=== PATIENT | male | born 1965 | race Caucasian/White ===

== ENCOUNTER 2021-10-02 05:37 | Observation (INO) ==
--- NOTE | 2021-05-02 11:52 | PAT Medication Instructions ---
Medication Instructions Date of Service May 02, 2021 Home Medications Medication Instructions Recorded diazepam 5 mg tablet 5 mg PO USEASDIRECTD #2 tab 11/23/20 oxycodone-acetaminophen 5 mg-325 1 tab PO Q6H PRN #10 tab 12/07/20 mg tablet (Percocet) diazepam 5 mg tablet 5 mg PO USEASDIRECTD oxycodone-acetaminophen 5 mg-325 mg tablet (Percocet) 1 tab PO Q6H PRN losartan 100 mg tablet 100 mg PO PM metformin 500 mg tablet 500 mg PO BID montelukast 10 mg tablet 10 mg PO DAILY PRN Continue as directed diazepam 5 mg tablet 5 mg PO USEASDIRECTD (if needed) DO NOT take the morning of surgery metformin 500 mg tablet 500 mg PO BID montelukast 10 mg tablet 10 mg PO DAILY PRN Take morning of surgery With a small sip of water, OTHERWISE NOTHING TO EAT OR DRINK AFTER MIDNIGHT: oxycodone-acetaminophen 5 mg-325 mg tablet (Percocet) 1 tab PO Q6H PRN (okay to take up to 4 hours prior to surgery if needed) Take evening before surgery oxycodone-acetaminophen 5 mg-325 mg tablet (Percocet) 1 tab PO Q6H PRN (if needed) losartan 100 mg tablet 100 mg PO PM metformin 500 mg tablet 500 mg PO BID montelukast 10 mg tablet 10 mg PO DAILY PRN (if needed) Other Notes If you have any questions please call us at [phone] or [phone] or [phone] or [phone]
--- NOTE | 2021-05-04 11:30 | Anesthesiology Consultation ---
Date of Service May 04, 2021 Assessment & Plan (1) Encounter for pre-operative examination: Chart Review Chart Review: Acceptable Risk for Surgery (pending possible ECHO report if able to obtain and preop Covid testing ) and Patient seen in Pre Admission Testing Will attempt to obtain ECHO done in the past several years (done at [facility]) (Pt had screening ECHO- no issues with ECHO per patient) - Check BSG AM DOS Per PAT appt on 05/04/21, patient returned from [place] 04/14/21 (work related trip)- did fly. Pt will be traveling to [employer] in [place] 05/13/21 to 05/21/21 for work obligation- does not wear mask when outside in crowds but does wear mask when in crowds indoors. No known Covid positive contacts or Covid related symptoms. No known Covid infection in the past 90 days. Pt NOT vaccinated for Covid. Pt educated on risk of Covid exposure prior to surgery and encouraged patient to social distance and wear mask in [place]. Preop Covid testing scheduled 05/31/21 (10 days after returning home) = will await results. Educated on importance of self quarantining, social distancing and wearing mask in public for the patient one week prior to surgery and after Covid testing done Teaching & Discussion Pre-Anesthesia Teaching/Discussion Notes: Instructed NPO after midnight before surgery,except medications with 15 cc of water. Medication instructions provided according to the PAT guidelines. History Surgery Operation Date: 06/02/21 07:00 Proposed Procedures p Right Total Knee Arthroplasty - Aiden Noguera, Height/Weight Height: 5 ft 7 in Weight: 128.5 kg Allergies Allergy/AdvReac Type Severity Reaction Status Date / Time azithromycin [From Zithromax] Allergy Intermediate Rash Verified 05/01/21 12:17 Medications Home Medications Medication Instructions Recorded Confirmed Last Taken diazepam 5 mg tablet 5 mg PO USEASDIRECTD #2 tab 11/23/20 05/01/21 Unknown oxycodone-acetaminophen 5 mg-325 1 tab PO Q6H PRN #10 tab 12/07/20 05/01/21 Unknown mg tablet (Percocet) losartan 100 mg tablet 100 mg PO PM 05/01/21 05/01/21 Unknown metformin 500 mg tablet 500 mg PO BID 05/01/21 05/01/21 Unknown montelukast 10 mg tablet 10 mg PO DAILY PRN 05/01/21 05/01/21 Unknown Past Medical History Medical History Diabetes mellitus NIDDM Glucose stable History of COVID-07 Oct 2019> not hospitalized> upper respiratory symptoms, this was prior to testing availability Hypertension Rotator cuff tear Left - completed PT- stable Exercise / Class Metabolic Activity II 4-5 Yardwork/Stairs/Walk up hill (one flight of stairs - no chest pain or SOB - activity limited by knee pain) Past Family History Family History Father Diabetes Past Surgical History Surgical History History of arthroscopy right knee History of tooth extraction Past Anesthesia History No Hx of Anesthesia Complications (with exception to movement (pt kept sitting up) with left knee scope ) and No Family Hx of Anesthesia Complications History of PONV No Hx of PONV and No Hx of Motion Sickness Social History Smoking Status: Never smoker Do You Dip or Chew Tobacco: No Hx Alcohol Use: No Hx Substance Use: No substance use type: does not use Review of Systems Occ reflux - takes Rolaids - relieved Patient denies chest pain, shortness of breath, dyspnea on exertion, cough, wheezing, palpitations. No hx of seizures, stroke, MA, apnea/snoring. No hx of blood clots or blood transfusions Physical Exam Vital Signs VITALS BP 146/84 P 73 TEMP 98.8 SP02 96% RESP 16 Constitutional no acute distress ENMT Mouth: no TMJ clicking Thyromental Distance: > or= 3.5 Finger Breadths (3.5) Mallampati Class: III Crowns to molars Neck + limited neck extension (mild ) Respiratory normal respiratory effort; no respiratory distress Auscultation: lungs clear to auscultation bilaterally; no wheezes Cardiovascular Rate/Rhythm: regular rate and regular rhythm Heart Sounds: no murmur Vessels: no carotid bruit Musculoskeletal Spine: no pain with cervical ROM Extremities: extremities normal to inspection Psychiatric Orientation: alert Lab Results Anesthesia Preop Results Results Anesthesia Widget: WBC 11.61 K/uL (4.8-10.8) H 05/04/21 Hgb 14.3 g/dL (14.0-18.0) 05/04/21 Hct 45.0 % (42-52) 05/04/21 Plt 322 K/uL (130-400) 05/04/21 Na 137 mmol/L (136-145) 05/04/21 K 4.1 mmol/L (3.5-5.1) 05/04/21 Cl 106 mmol/L (98-107) 05/04/21 CO2 23 mmol/L (21-32) 05/04/21 BUN 12 mg/dl (7-18) 05/04/21 Creat 0.97 mg/dl (0.6-1.4) 05/04/21 Glucose Level 115 mg/dl (70-99) H 05/04/21 PT 9.3 Seconds (9.0-12.0) 05/04/21 PTT 27.7 Seconds (21.0-31.0) 05/04/21 INR 0.9 (0.9-1.1) 05/04/21 HA1c 6.6 % (4.5-5.6) H 05/04/21 Blood Type O Positive 05/04/21 Antibody Screen NEGATIVE 05/04/21 Testing Laboratory Results 03/28/21= HGB A1C: 6.9 Electrocardiogram Date: 05/04/21 Findings: + NSR @ (69bpm) Normal EKG per cardio. Chest X-Ray Date: 05/04/21 Findings: + NAD Multiple chronic left-sided rib fractures.
--- NOTE | 2021-09-04 14:11 | Anesthesiology Consultation ---
Date of Service September 04, 2021 History Surgery Operation Date: 09/08/21 10:30 Proposed Procedures p Right Total Knee Arthroplasty - Aiden Noguera DO Height/Weight Height: 5 ft 7 in Weight: 127.006 kg Allergies Allergy/AdvReac Type Severity Reaction Status Date / Time azithromycin [From Zithromax] Allergy Intermediate Rash Verified 08/25/21 14:21 Medications Home Medications Medication Instructions Recorded Confirmed Last Taken diazepam 5 mg tablet 5 mg PO USEASDIRECTD #2 tab 11/23/20 08/23/21 Unknown losartan 100 mg tablet 100 mg PO PM 05/01/21 08/25/21 Unknown metformin 500 mg tablet 500 mg PO BID 05/01/21 08/25/21 Unknown montelukast 10 mg tablet 10 mg PO DAILY PRN 05/01/21 08/25/21 Unknown azelastine 137 mcg (0.1 %) nasal 1 spray INTRANASAL QAM 08/23/21 08/25/21 Unknown spray aerosol fluticasone propionate 50 1 spray INTRANASAL DAILY PRN 08/23/21 08/25/21 Unknown mcg/actuation nasal spray,suspension Past Medical History Medical History Diabetes mellitus NIDDM Glucose stable History of COVID-07 Oct 2019> not hospitalized> upper respiratory symptoms, this was prior to t esting availability Hypertension Rotator cuff tear Left - completed PT- stable Past Family History Family History Father Diabetes Past Surgical History Surgical History History of arthroscopy right knee History of tooth extraction Social History Smoking Status: Never smoker Do You Dip or Chew Tobacco: No Hx Alcohol Use: No Hx Substance Use: No substance use type: does not use Testing Electrocardiogram Date: 05/04/21 Findings: + NSR @ (69bpm) Normal EKG per cardio. Chest X-Ray Date: 05/04/21 Findings: + NAD Multiple chronic left-sided rib fractures.
--- NOTE | 2021-09-05 10:42 | Anesthesiology Consultation ---
Date of Service September 05, 2021 Assessment & Plan (1) Encounter for pre-operative examination: Chart Review Chart Review: Acceptable Risk for Surgery (pending preop Covid testing ) and Patient NOT seen in Pre Admission Testing - Check BSG AM DOS. No preop CBC with diff done- will order for DOS. Per addendum 05/30/21 to Anesthesia Consultation 05/04/21= "Dr Miguel reviewed chart- also discussed with Dr. Lovett-patient is considered an acceptable candidate for [facility] from anesthesia perspective. Pending patient is motivated, has good support and surgeon's office completes [facility] preop requirements- patient may proceed with outpatient TKA per Dr. Miguel/Rachell." Per nursing assessment 08/25/2021, patient denies any recent travel. Wears mask only when required and in some stores. No known COVID infection in the past 90 days. Patient is not vaccinated for COVID. No known Covid positive exposures or Covid related symptoms. Preop Covid testing will need done 2-4 days prior to surgery = will await results. Will order [facility] Covid test for DOS due to not masking and not being vaccinated for Covid. History Surgery Operation Date: 09/08/21 10:30 Proposed Procedures p Right Total Knee Arthroplasty - Aiden Noguera, Height/Weight Height: 5 ft 7 in Weight: 127.006 kg Allergies Allergy/AdvReac Type Severity Reaction Status Date / Time azithromycin [From Zithromax] Allergy Intermediate Rash Verified 08/25/21 14:21 Medications Home Medications Medication Instructions Recorded Confirmed Last Taken diazepam 5 mg tablet 5 mg PO USEASDIRECTD #2 tab 11/23/20 08/23/21 Unknown losartan 100 mg tablet 100 mg PO PM 05/01/21 08/25/21 Unknown metformin 500 mg tablet 500 mg PO BID 05/01/21 08/25/21 Unknown montelukast 10 mg tablet 10 mg PO DAILY PRN 05/01/21 08/25/21 Unknown azelastine 137 mcg (0.1 %) nasal 1 spray INTRANASAL QAM 08/23/21 08/25/21 Unknown spray aerosol fluticasone propionate 50 1 spray INTRANASAL DAILY PRN 08/23/21 08/25/21 Unknown mcg/actuation nasal spray,suspension Past Medical History Medical History Diabetes mellitus NIDDM Glucose stable History of COVID-07 Oct 2019> not hospitalized> upper respiratory symptoms, this was prior to testing availability Hypertension Rotator cuff tear Left - completed PT- stable Past Family History Family History Father Diabetes Past Surgical History Surgical History History of arthroscopy right knee History of tooth extraction Social History Smoking Status: Never smoker Do You Dip or Chew Tobacco: No Hx Alcohol Use: No Hx Substance Use: No substance use type: does not use Lab Results Anesthesia Preop Results Results Anesthesia Widget: Na 137 mmol/L (136-145) 08/30/21 K 3.6 mmol/L (3.5-5.1) 08/30/21 Cl 103 mmol/L (98-107) 08/30/21 CO2 24 mmol/L (21-32) 08/30/21 BUN 11 mg/dl (6-23) 08/30/21 Creat 0.94 mg/dl (0.6-1.4) 08/30/21 Glucose Level 157 mg/dl (70-99) H 08/30/21 PT 9.8 Seconds (9.0-12.0) 08/30/21 PTT 28.1 Seconds (21.0-31.0) 08/30/21 INR 1.0 (0.9-1.1) 08/30/21 Testing Laboratory Results 05/04/21= HGB A1C: 6.6 Electrocardiogram Date: 05/04/21 Findings: + NSR @ (69bpm) Normal EKG per cardio. Chest X-Ray Date: 05/04/21 Findings: + NAD Multiple chronic left-sided rib fractures. Echocardiogram Date: 10/22/18 Essentially normal echocardiogram. No hemodynamically significant valvular abnormalities noted. LV systolic function normal. EF 65 to 69%. Grade 1 diastolic dysfunction. LV cavity size normal. Mild increased left ventricular wall thickness. Normal LV mass. Mild MR.
--- NOTE | 2021-09-28 12:45 | History & Physical Report ---
Date of Service September 28, 2021 Assessment & Plan (1) Osteoarthritis of right knee: We will proceed with a right 20 arthroplasty. Postoperatively he will be part of our outpatient joint protocol. We will give him aspirin for DVT prophylaxis and oral pain medications for discharged home. He plans to use energy physical therapy upon discharge. History of Present Illness Chief Complaint: Osteoarthritis of the right knee. Primary Care Provider: Cheng Rosen MD Sreedhar is a pleasant 56-year-old male who is been doing with chronic increasing right knee pain. X-rays and clinical examination been diagnostic for advanced osteoarthritis of the right knee. After failing years of conservative treatment, he has elected proceed with a right total knee arthroplasty. Allergies Allergy/AdvReac Type Severity Reaction Status Date / Time azithromycin [From Zithromax] Allergy Intermediate Rash Verified 08/25/21 14:21 Home Medications Medication Instructions Recorded Confirmed Type diazepam 5 mg tablet 5 mg PO USEASDIRECTD #2 tab 11/23/20 08/23/21 Rx losartan 100 mg tablet 100 mg PO PM 05/01/21 08/25/21 History metformin 500 mg tablet 500 mg PO BID 05/01/21 08/25/21 History montelukast 10 mg tablet 10 mg PO DAILY PRN 05/01/21 08/25/21 History azelastine 137 mcg (0.1 %) nasal 1 spray INTRANASAL QAM 08/23/21 08/25/21 History spray aerosol fluticasone propionate 50 1 spray INTRANASAL DAILY PRN 08/23/21 08/25/21 History mcg/actuation nasal spray,suspension Past Med/Surg History Medical History Diabetes mellitus NIDDM Glucose stable History of COVID-07 Oct 2019> not hospitalized> upper respiratory symptoms, this was prior to testing availability Hypertension Rotator cuff tear Left - completed PT- stable Surgical History History of arthroscopy right knee History of tooth extraction Family History Father Diabetes Social History Smoking Status: Never smoker Second Hand Exposure: No; Hx Alcohol Use: No Hx Substance Use: No Preferred Language: Slovak Communication Ability: Effective Stevedoring Supervisor Required: No Beliefs That Will Affect Care: None Current Living Situation: Spouse and Family current occupational status: retired Feels Safe at Home: Yes Assistive Devices: Cane and Glasses Review of Systems All systems reviewed & are unremarkable except as noted in HPI & below. Physical Exam On physical examination of the right knee, he has range of motion from 5 to 120 degrees. No instability. Pain over the distal medial femoral condyle and over the medial joint lines.. Constitutional WD/WN, vitals as above Eyes PERRL, conjunctivae normal, anicteric sclerae ENMT external ear and nose normal, oropharynx normal Neck trachea midline, no thyromegaly Respiratory normal respiratory effort Cardiovascular RRR, no murmur, no edema Gastrointestinal (Abdomen) normal bowel sounds, soft, nontender, no hepatosplenomegaly Psychiatric A+Ox3, euthymic affect Results & Data Results & Data Laboratory Results . Diagnostic Findings X-rays of the right knee show advanced osteoarthritis with joint space narrowing, osteophyte formation, and plip-de-lguq articulation. PG Care Time/CCT Total # of Minutes Spent Total Time Spent with Patient: Total time spent is greater than 50% in coordination of care (as documented) at patient's floor/unit and/or counseling patient: Coding Level of Care Code None Diagnoses Osteoarthritis of right knee M17.11
[~2021-10-02 05:37] MED LIST: ACETAMINOPHEN 500 MG TAB PO SCH; FAMOTIDINE 20 MG TAB PO SCH; GABAPENTIN 600 MG DOSE PO SCH; LR 500ML BOLUS, THEN 15ML/HR IV SCH; LR 60ML/HR IV SCH; ROPIVACAINE 0.5% HCL/PF 150 MG, BUPIVACAINE 0.75% MPF 20 ML, EPINEPHrine 30MG/30ML (OR ... INSTIL SCH; TRANEXAMIC ACID 1,000 MG **IV Intra-op IV SCH; TRANEXAMIC ACID 1,000 MG **IV Pre-op IV SCH; dexAMETHasone 4 MG TAB PO SCH
[2021-10-02] MEDS ORDERED: TRANEXAMIC ACID 1,000 MG **IV Intra-op IV SCH (06:00)
[2021-10-02] MEDS ORDERED: GABAPENTIN 600 MG DOSE PO SCH (06:00)
[2021-10-02] MEDS ORDERED: LR 60ML/HR IV SCH (06:00)
[2021-10-02] MEDS ORDERED: FAMOTIDINE 20 MG TAB PO SCH (06:00)
[2021-10-02] MEDS ORDERED: ACETAMINOPHEN 500 MG TAB PO SCH (06:00)
[2021-10-02] MEDS ORDERED: TRANEXAMIC ACID 1,000 MG **IV Pre-op IV SCH (06:00)
[2021-10-02] MEDS ORDERED: dexAMETHasone 4 MG TAB PO SCH (06:00)
[2021-10-02] MEDS ORDERED: LR 500ML BOLUS, THEN 15ML/HR IV SCH (06:00)
[2021-10-02] MEDS ORDERED: LIDOCAINE 2%/EPINEPHRINE 1:200,000 20 ML SDV ONE (06:27)
[2021-10-02] MEDS ORDERED: ROPIVACAINE 0.5% 5 MG/ML 30 ML VIAL ONE (06:28)
[2021-10-02] MEDS ORDERED: EPINEPHrine INJ 1 MG/ML AMP ONE (06:28)
--- NOTE | 2021-10-02 06:38 | History & Physical Bridge Note ---
Date of Service October 02, 2021 History & Physical Bridge Note I have examined the patient, reviewed the History & Physical and in the interval since the performance of the History & Physical I have noted the following changes of clinical significance: no changes noted
[2021-10-02] MEDS ORDERED: MIDAZOLAM HCL 1 MG/ML 2ML VIAL ONE ×2 (06:39→07:16)
[2021-10-02] MEDS ORDERED: fentaNYL citrate 100 MCG/2 ML VIAL ONE ×4 (06:39→09:08)
[2021-10-02] MEDS ORDERED: MEPIVACAINE HCL 1.5% 30 ML VIAL ONE (06:43)
[2021-10-02] MEDS ORDERED: Ketorolac (*for OR use only*) 30 MG, dexAMETHasone 4 MG, KETAMINE HCL (**OR use only) 1... INFIL ONE (06:45)
[2021-10-02] MEDS ORDERED: KETAMINE 50 MG/5 ML SYRINGE ONE (07:21)
[2021-10-02] MEDS ORDERED: PROPOFOL IV EMULSION 10 MG/ML 20 ML VIAL IV ONE (07:27)
[2021-10-02] MEDS ORDERED: ONDANSETRON INJ 2 MG/ML 2 ML VIAL ONE (07:27)
[2021-10-02] MEDS ORDERED: LIDOCAINE 2% 2 ML VIAL/AMP(20MG/ML) INFIL ONE (07:27)
[2021-10-02] MEDS ORDERED: PHENYLEPHRINE 100MCG/ML 5ML SYR ONE (07:37)
--- NOTE | 2021-10-02 08:32 | Operative Report ---
PG Post Operative Report Pre & Post Diagnosis Operation Date: 10/02/21 07:00 Pre-Op Diagnosis: Right Knee Osteoarthritis Post-Op Diagnosis: Right Knee Osteoarthritis I identified the patient and participated in the time-out.: Yes Procedure Operation Date: 10/02/21 07:00 Actual Procedures p Right Total Knee Arthroplasty, Cemented(Right) - Aiden Noguera DO Surgeon Aiden Noguera, Industrial Pipefitter Journeyman Aiden Diehl PAC Estimated Blood Loss 10 Findings Consistent with Post-Op Diagnosis Specimens Right femoral and tibial bone Complications none Disposition Disposition: Recovery Room Indications Sreedhar is a pleasant 56-year-old male who is been doing with chronic increasing right knee pain. X-rays and clinical examination were diagnostic for advanced osteoarthritis of the right knee. After failing conservative treatment, he elected proceed with a right total knee arthroplasty. Description of Procedure Implants used: I used a Dyllan Persona total knee arthroplasty system with a size 9 PS femur, F tibia, 34 oval patella, and a size 10 CPS polyethylene bearing. All components were cemented in place with Biomet cement. Sreedhar arrived [facility] for the above procedure. He was seen in the preoperative holding area and the operative extremity was identified and signed. He was given a preoperative antibiotic, TXA, a spinal anesthetic and an adductor nerve block. He was taken back to the operating room and laid on the table in supine position. He was given basic sedation. The operative knee was then prepped and draped in sterile fashion. A timeout was done, and the patient and the operative extremity was properly identified. A midline incision was made directly over the patella. Dissection was taken down to the extensor mechanism. A subvastus arthrotomy was used. The medial retinaculum was released and the fat pad was mostly excised. The knee was flexed and the ACL, PCL, and meniscus were removed. A drill was sent down the center of the femoral canal followed by an intramedullary maren. Off that maren a distal femoral cutting block was placed. 9 mm was resected off the distal femur at 5 of valgus. A posterior referencing AP sizing guide was then placed on the distal femur. The femur measured to be a size 9. 2 drill holes were placed in 3 of external rotation. A 4-in-1 cutting block was then impacted into place. Anterior, posterior, and chamfer cuts were then made. The proximal tibia was then exposed. An external tibial alignment guide was placed. A tibial cut guide was then anchored in place and the proximal tibia was then resected. The posterior aspect of the knee was then opened up and any additional meniscus fragments and osteophytes were removed. The tibia measured to be a size F. The tibial plate was then placed in the ap propriate rotation and the tibia was drilled and punched. Trial components were then placed. I used a size 10 CPS polyethylene insert. The knee was brought through a full range of motion and felt to be stable. The peg holes for the femoral component were then drilled. The patella was then everted and 9 mm was resected off the posterior aspect of the patella. The patella measured to be a size 34 oval. 3 peg holes were then drilled. A trial patella was placed. The knee was once again brought through a full range of motion and felt to be stable. Trial components were then removed. The surrounding soft tissues were injected with 100 cc of an orthopedic pain control cocktail. All components were then cemented into place with Biomet cement. The final polyethylene insert was then snapped into place. Once cement was dry the tourniquet was deflated. Hemostasis was obtained. A dilute betadyne lavage was then done for 3 minutes. The joint was then irrigated with normal saline solution. The subvastus arthrotomy was then closed with #1 Vicryl suture. The skin was closed with 2-0 Vicryl, 3-0V lock suture, and edilma. A soft compressive dressing was placed. He was then transferred to a hospital bed and taken to the postanesthesia care unit in stable condition. He tolerated the procedure well. Aiden Diehl PA-C, was present for the entire procedure. He was critical for patient positioning, prepping, draping, retraction exposure, wound closure and application of sterile dressing. I attest to the content of the Intraoperative Record and any orders documented therein. Any exceptions are noted below.
[2021-10-02] MEDS ORDERED: oxyCODONE/ACETAMINOPHEN 5mg/325mg TAB PO PRN (08:35)
[2021-10-02] MEDS ORDERED: ATROPINE SULFATE 0.1 MG/ML 10ML SYR IV PRN ×2 (08:37→08:51)
[2021-10-02] MEDS ORDERED: ePHEDrine sulfate 50 MG/ML AMP IV PRN ×2 (08:37→08:51)
[2021-10-02] MEDS ORDERED: PROMETHAZINE HCL 12.5 MG in SODIUM CHLORIDE 0.9% 50 ML IV PRN (08:51)
[2021-10-02] MEDS ORDERED: fentaNYL citrate 100 MCG/2 ML VIAL IV PRN (08:51)
[2021-10-02] MEDS ORDERED: ONDANSETRON INJ 2 MG/ML 2 ML VIAL IV PRN ×2 (08:51→18:20)
[2021-10-02] MEDS ORDERED: NALOXONE HCL 0.4 MG/1 ML VIAL/CARP IV PRN ×2 (08:51→18:20)
[2021-10-02] MEDS ORDERED: FLUMAZENIL 0.1 MG/1 ML 10 ML VIAL IV PRN (08:51)
--- NOTE | 2021-10-02 09:25 | XRay Report ---
XR knee RT 1 or 2V routine CLINICAL HISTORY: Surgical Post Op TECHNIQUE: 2 views of the right knee were obtained. Comparison: None available at the time of this dictation. FINDINGS: Patient is status post total knee arthroplasty with expected postsurgical changes including soft tiss ue swelling, subcutaneous emphysema, and surgical staple placement. No periarticular lucency or hardw are fracture is seen. There has been resection of the anterior tibial plateau. The alignment is anato espinoza. Joint spaces are well-preserved. No joint effusion is seen. No soft tissue abnormality is seen. IMPRESSION: Expected postoperative appearance status post placement of total knee arthroplasty. ACT 112: Negative or not required by law. Electronically signed by: Ramon Winston M.D. 10/02/2021 9:23 AM
[2021-10-02] MEDS: HYDROmorphone INJ 1 MG/ML SYRINGE IV PRN ×6 (09:27→10:03)
--- NOTE | 2021-10-02 10:20 | Anesthesiology Progress Note ---
Date of Service October 02, 2021 Anesthesia Post Procedure Vital Signs Vital Signs: Temp Pulse Pulse Resp BP BP Pulse Ox 10/02/21 10:05 36.4 C L 63 15 120/70 94 10/02/21 09:55 36.4 C L 63 16 128/45 L 94 10/02/21 09:45 36.4 C L 64 16 120/68 95 10/02/21 09:35 67 19 135/57 L 94 10/02/21 09:25 63 13 112/69 96 10/02/21 09:15 71 15 124/75 95 10/02/21 09:05 76 14 138/71 97 10/02/21 08:55 77 17 126/65 96 10/02/21 08:45 36.9 C 79 16 117/64 97 10/02/21 06:00 37 C 96 H 20 153/78 H 96 Pain Intensity Right Knee: Pain Intensity: 6 Transfer of Care Handoff Completed per policy Notes Mental Status: alert / awake / arousable Patient Amnestic to Procedure: Yes Nausea / Vomiting: adequately controlled Pain: adequately controlled Airway Patency, RR, SpO2: stable & adequate BP & HR: stable & adequate Hydration State: stable & adequate Neuraxial Anesthesia: was administered and sensory block is resolving Anesthetic Complications: no major complications apparent
[2021-10-02] MEDS ORDERED: MONTELUKAST SODIUM 10 MG TABLET PO PRN (18:20)
[2021-10-02] MEDS ORDERED: METOCLOPRAMIDE HCL INJ 5 MG/ML 2 ML VIAL IV PRN (18:20)
[2021-10-02] MEDS ORDERED: SODIUM CHLORIDE 0.9% 1000ML 1,000 ML IV SCH (18:20)
[2021-10-02] MEDS ORDERED: bisacodyL 10 MG SUPP PR PRN (18:20)
[2021-10-02] MEDS ORDERED: MAGNESIUM HYDROXIDE SUSP 30 ML UDC PO PRN (18:20)
[2021-10-02] MEDS ORDERED: FLUTICASONE PROPIONATE NA SPR 16 GM BTL PRN (18:20)
[2021-10-02] MEDS ORDERED: PHARMACY GLYCEMIC MGMT CONSULT PRN (18:20)
[2021-10-02] MEDS ORDERED: HYDROmorphone INJ 0.5 MG/0.5 ML SYR IV PRN (18:20)
[2021-10-02] MEDS ORDERED: CARBOHYDRATES FOR HYPOGLYCEMIA PO PRN (19:15)
[2021-10-02] MEDS ORDERED: DEXTROSE 50% 50 ML SYRINGE IV PRN (19:15)
[2021-10-02] MEDS ORDERED: GLUCAGON FOR INJ 1 MG VIAL IM PRN (19:15)
[2021-10-02] MEDS ORDERED: GLUCOSE 10 TABS/TUBE PO PRN (19:15)
[2021-10-02] MEDS ORDERED: GLUCOSE 40% GEL 15 GM TUBE PO PRN (19:15)
[2021-10-02] MEDS: ceFAZolin 2000MG 2,000 MG/15 ML SYR IV SCH (19:27)
[2021-10-02] MEDS: KETOROLAC 30 MG/ML VIAL IV SCH (19:28)
[2021-10-02] MEDS ORDERED: SENNA 8.6 MG TAB PO SCH (21:00)
[2021-10-02] MEDS ORDERED: LOSARTAN POTASSIUM 50 MG TAB PO SCH (21:00)
[2021-10-02] MEDS: INSULIN ASPART PER UNIT SC SCH (21:29)
[2021-10-02] MEDS: DOCUSATE SODIUM 100 MG CAP PO SCH (21:29)
[2021-10-02] MEDS: ASPIRIN 81 MG ECTAB PO SCH (21:29)
[2021-10-02] MEDS: ACETAMINOPHEN 500 MG TAB PO SCH (21:33)
[2021-10-03] MEDS: KETOROLAC 30 MG/ML VIAL IV SCH ×4 (00:06→17:26)
[2021-10-03] MEDS: INSULIN ASPART PER UNIT SC SCH ×5 (00:15→16:26)
[2021-10-03] MEDS: oxyCODONE HCL IR 5 MG TAB (IMMEDIATE RELEASE) PO PRN ×4 (00:21→16:07)
[2021-10-03] MEDS: ceFAZolin 2000MG 2,000 MG/15 ML SYR IV SCH (02:44)
[2021-10-03] MEDS: ACETAMINOPHEN 500 MG TAB PO SCH ×2 (06:10→12:36)
--- NOTE | 2021-10-03 06:31 | Orthopedic Progress Note ---
Date of Service October 03, 2021 Assessment & Plan (1) Status post right knee replacement: Overall is doing very well. Is not any much pain in the right knee. He will be seen by physical therapy today for ambulation and range of motion exercises. He is on aspirin for DVT prophylaxis. He can be discharged home later today. He will follow-up with orthopedics in 2 weeks. Sesar Eli was seen and examined at bedside this morning. Overall he looks much better. He is awake and alert. He says he feels much more alert than he did yesterday when he was admitted. He has been up and walking to the bathroom. He has no complaints. Review of Systems All systems reviewed & are unremarkable except as noted in HPI & below. Physical Exam On physical examination of the right knee, the dressing is clean and dry. He is active dorsiflexion plantarflexion of his right ankle. Sensation is intact throughout.. Results & Data Results & Data Laboratory Results . Diagnostic Findings Postoperative x-rays of the right knee show the prosthesis to be in anatomic alignment without any evidence of fracture, desiccation, or loosening. PG Care Time/CCT Total # of Minutes Spent Total Time Spent with Patient: Total time spent is greater than 50% in coordination of care (as documented) at patient's floor/unit and/or counseling patient: Coding Level of Care Code 78906 Post Operative Follow-Up Diagnoses Status post right knee replacement Z96.651
--- NOTE | 2021-10-03 06:33 | Discharge Summary ---
Date of Service October 03, 2021 Admission HPI (Per Admitting) Sreedhar is a pleasant 56-year-old male who is been doing with chronic increasing right knee pain. X-rays and clinical examination been diagnostic for advanced osteoarthritis of the right knee. After failing years of conservative treatment, he has elected proceed with a right total knee arthroplasty. Admission Exam (Per Admitting) On physical examination of the right knee, he has range of motion from 5 to 120 degrees. No instability. Pain over the distal medial femoral condyle and over the medial joint lines.. Principal Diagnosis Same as "Discharge Diagnosis" noted below under Discharge Instructions. Discharge Exam On physical examination of the right knee, the dressing is clean and dry. He is active dorsiflexion plantarflexion of his right ankle. Sensation is intact throughout.. Discharge Data Procedures Performed Operation Date: 10/02/21 07:00 Actual Procedures p Right Total Knee Arthroplasty, Cemented(Right) - Aiden Noguera DO Ordered Studies 10/02/21 06:34 US - OR guided needle placemen Stat Hospital Course (1) Status post right knee replacement: On October 02, 2021 Sreedhar arrived at [facility] and underwent a right knee replacement.complication. He had a spinal anesthetic and a adductor nerve block. Postoperatively he was initially in our outpatient joint protocol. Unfortunately he was dealing with right knee pain and significant sedation after the procedure. Therapy tried to see him twice but he felt lightheaded when he would stand up We felt it was not safe to send him home and we decided to keep him overnight. On postop day #1 he was feeling much better. His vital signs are stable and his pain was well controlled. He was able to participate well with physical therapy doing ambulation and range of motion exercises. He was then discharged home. He will follow-up with orthopedics in 2 weeks. PG Care Time/CCT Total # of Minutes Spent Total Time Spent with Patient: Total time spent is greater than 50% in coordination of care (as documented) at patient's floor/unit and/or counseling patient: Discharge Plan Discharge Items Patient Disposition: Home - Home Health Services Reason For Visit: PATIENT FAILED PT EVALUATION D/T DIZZINESS Discharge Diagnosis: Right knee replacement Activity: As commented below Non-emergency contact: Surgeon Call non-emergency contact if: your wound has increased redness and your wound has increased drainage Follow-up/Referrals: [facility] [Outside] (as per surgeon's office ) Cheng Rosen MD [Primary Care Provider] - Diet: Regular Addtl Attending Provider Instructions: Activity and Therapy Recommendations: * If you are using [facility] then therapy will be provided at your home until they feel you have accomplished all of your goals. * If you are using [facility] then Physical Therapy will be provided until they feel you are ready to start Outpatient Physical Therapy. * If you are not using home therapy then Outpatient Physical Therapy should start about 3-5 days from your day of surgery. Therapy will last about 6-10 weeks * It is important not to put a pillow under your knee when you are relaxing or sleeping. It is just as important to make sure you are getting your knee perfectly straight as it is to regain your knee bend. * You were shown a series of exercises in the hospital. Do these exercises three times each day including the exercises you were shown in physical therapy. * Get up and walk several times each day. For the first four weeks, try not to stand or walk for more than one hour at a time. If you do stand or walk for more than one hour, you will not hurt anything, but your leg will likely swell. * As you feel comfortable, you may change from the walker or crutches to a cane and then to independent walking. Medications: * Narcotic You will likely be sent home from the hospital with a prescription for the narcotic pain medication that worked best throughout your stay. * Aspirin Most patients will be required to take Aspirin 81mg twice a day for 6 weeks after surgery. This is obtained [id number] and a prescription is not necessary. * Other medications may be prescribed for specific circumstances. If you have any questions, please call the office at . * Resume previous home medications unless otherwise instructed TEDs/Elastic Stockings: The white elastic stockings help limit swelling and prevent blood clots from forming in your legs.~ The more you wear them, the more they work. Wear them for six weeks. Dressing Care: The dressing can be changed after physical therapy on postop day #1. Daily dry dressing changes for a few days, especially if the incision is still draining some. If the incision is not draining then you may leave the edilma open to air. If there is a little bit of drainage or if the edilma are getting stuck on your clothing then cover the incision with a dry dressing. The edilma will be removed at your 2 week follow-up appointment. Showering: You may shower 5 days from the day of surgery as long as the incision is no longer draining. You may shower with the edilma exposed. Let soapy water run over the edilma and pat them dry. Do not scrub or soak the incision. Things To Watch For: * Drainage from the incision site that occurs more than one week after your surgery. * Increased redness at the incision site. * Fever above 102 degrees Fahrenheit. * Unusual chest pain or shortness of breath. * Call [facility] at with any of the above problems Follow-Up Visit: Follow-up with Dr. Noguera's PA (Aiden Diehl) 2-3 weeks after your day of surgery. He will remove your edilma and answer any questions. If you have any additional questions or concerns, Dr Noguera is usually in the office at the same time and will be available An appointment was probably scheduled when you signed-up for surgery in the office. If you have any questions call Office Instructions: More detailed instructions as well as Frequently Asked Questions were provided in a folder by our office when you signed-up for surgery. Please review these instructions when you get home. If you have any further questions or concerns, please feel free to call the office at [phone] Pending Studies at Discharge: No Stand-Alone Forms: Anesthesia/Sed [facility], [facility] Medications and DC Order Prescriptions: New oxycodone-acetaminophen 5-325 mg tablet 1 tab PO Q6H PRN (Reason: pain) Qty: 30 RF: 0 aspirin [Adult Aspirin Regimen] 81 mg tablet,delayed release (DR/EC) 81 mg PO BID Qty: 84 RF: 0 celecoxib [Celebrex] 200 mg capsule 200 mg PO BID 14 Days Qty: 28 RF: 0 Continued diazepam 5 mg tablet 5 mg PO USEASDIRECTD Qty: 2 RF: 0 fluticasone propionate 50 mcg/actuation spray,suspension 1 spray intranasal DAILY PRN (Reason: Allergy Symptoms) RF: 0 azelastine 137 mcg (0.1 %) aerosol,spray 1 spray intranasal QAM RF: 0 metformin 500 mg Tablet 500 mg PO BID RF: 0 montelukast 10 mg Tablet 10 mg PO DAILY PRN (Reason: Allergic Symptoms) RF: 0 losartan 100 mg Tablet 100 mg PO PM RF: 0 Discharge Orders: Discharge Order (Routine); Ordered 10/03/21 Ordered By: Aiden Rodriguez/Other Patient Handouts: DVT Post Op Prevention Admission Data Admit Date/Time: 10/02/21 16:45 Attending Provider: Aiden Noguera Admit Provider: Aiden Noguera Primary Care Provider: Cheng Rosen
[2021-10-03 07:26] LABS: Estimated Average Glucose 143 mg/dl; Hemoglobin A1C 6.6 % (4.5-5.6)
[2021-10-03] MEDS ORDERED: MULTIVITAMIN TAB PO SCH (09:00)
[2021-10-03] MEDS ORDERED: AZELASTINE HCL 0.1% NASAL 200 SPRAYS/27,400 MCG BTL SCH (09:00)
[2021-10-03] MEDS: DOCUSATE SODIUM 100 MG CAP PO SCH (09:12)
[2021-10-03] MEDS: ASPIRIN 81 MG ECTAB PO SCH (09:12)
== END 2021-10-03 19:15 | disposition home health service (06) ==
LOC: ASU 05:37 → 3E 05:37 → OBSVTOIN 16:45 → INTOOBSV 16:45

== ENCOUNTER 2022-01-29 10:21 | Observation (INO) ==
--- NOTE | 2022-01-01 14:08 | PAT Medication Instructions ---
Medication Instructions Date of Service January 01, 2022 Home Medications Medication Instructions Recorded hydrocortisone-pramoxine 2.5 %-1 % 1 applic KS QID PRN #30 g 10/16/21 rectal cream (Analpram-HC) losartan 100 mg tablet 100 mg PO PM metformin 500 mg tablet 500 mg PO BID montelukast 10 mg tablet 10 mg PO DAILY PRN azelastine 137 mcg (0.1 %) nasal spray aerosol 1 spray INTRANASAL QAM PRN fluticasone propionate 50 mcg/actuation nasal spray,suspension 1 spray INTRANASAL DAILY PRN hydrocortisone-pramoxine 2.5 %-1 % rectal cream (Analpram-HC) 1 applic KS QID PRN DO NOT take the morning of surgery metformin 500 mg tablet 500 mg PO BID montelukast 10 mg tablet 10 mg PO DAILY PRN hydrocortisone-pramoxine 2.5 %-1 % rectal cream (Analpram-HC) 1 applic KS QID PRN Take morning of surgery With a small sip of water, OTHERWISE NOTHING TO EAT OR DRINK AFTER MIDNIGHT: azelastine 137 mcg (0.1 %) nasal spray aerosol 1 spray INTRANASAL QAM PRN (if needed) fluticasone propionate 50 mcg/actuation nasal spray,suspension 1 spray INTRANASAL DAILY PRN (if needed) Take evening before surgery losartan 100 mg tablet 100 mg PO PM metformin 500 mg tablet 500 mg PO BID montelukast 10 mg tablet 10 mg PO DAILY PRN (if needed) azelastine 137 mcg (0.1 %) nasal spray aerosol 1 spray INTRANASAL QAM PRN (if needed) fluticasone propionate 50 mcg/actuation nasal spray,suspension 1 spray INTRANASAL DAILY PRN (if needed) hydrocortisone-pramoxine 2.5 %-1 % rectal cream (Analpram-HC) 1 applic KS QID PRN (if needed) Other Notes If you have any questions please call us at [phone] or [phone] or [phone] or [phone]
--- NOTE | 2022-01-03 15:31 | Anesthesiology Consultation ---
Date of Service January 03, 2022 Assessment & Plan (1) Encounter for pre-operative examination: - COVID screening: Per assessment on 01/03: No known COVID-19 positive contacts or current COVID-19 related symptoms. Travel screen negative x2+ weeks. Surgeon arranging preop COVID testing. Awaiting results. - S/P Left TKA (10/02/21): SAB at L3/L4 (x1 attempt) + PNB at [facility]. No issues noted per post-op anesthesia progress note. Per discharge summary: "Postoperatively he was initially in our outpatient joint protocol. Unfortunately he was dealing with right knee pain and significant sedation after the procedure. Therapy tried to see him twice but he felt lightheaded when he would stand up We felt it was not safe to send him home and we decided to keep him overnight. On postop day #1 he was feeling much better. His vital signs are stable and his pain was well controlled. He was able to participate well with physical therapy doing ambulation and range of motion exercises. He was then discharged home. " - Check BSG AM DOS (At PAT visit, patient repotrs that he had stopped Metformin a few months ago as he states his A1C has routinely been under 6.5%. He was advised to contact and discuss further with PCP. Patient states he is agreeable to restart Metformin based on preop A1C levels. A1C on preop labs were trending upward, now at 6.8%. Multiple attempts to speak with patient to update him of results unsuccessful. Did leave message with patient that due to A1C now 6.8%, recommend patient restart Metformin and contact PCP if any concerns. Patient was advised at PAT visit to hold Metformin DOS. Will recheck BSG AM DOS. Chart Review Chart Review: Acceptable Risk for Surgery (pending evaluation AM DOS) and Patient seen in Pre Admission Testing Teaching & Discussion Pre-Anesthesia Teaching/Discussion Notes: Instructed NPO after midnight before surgery,except medications with 15 cc of water. Medication instructions provided according to the PAT guidelines. History Surgery Operation Date: 01/29/22 08:50 Proposed Procedures p Left Total Knee Arthroplasty - Aiden Noguera DO Height/Weight Height: 5 ft 7 in Weight: 127.4 kg Allergies Allergy/AdvReac Type Severity Reaction Status Date / Time azithromycin [From Zithromax] Allergy Intermediate Rash Verified 12/29/21 16:58 Medications Home Medications Medication Instructions Recorded Confirmed Last Taken losartan 100 mg tablet 100 mg PO PM 05/01/21 12/29/21 10/01/21 23:30 metformin 500 mg tablet 500 mg PO BID 05/01/21 12/29/21 09/23/21 09:00 montelukast 10 mg tablet 10 mg PO DAILY PRN 05/01/21 12/29/21 Unknown azelastine 137 mcg (0.1 %) nasal 1 spray INTRANASAL QAM PRN 08/23/21 12/29/21 Unknown spray aerosol fluticasone propionate 50 1 spray INTRANASAL DAILY PRN 08/23/21 12/29/21 09/25/21 09:00 mcg/actuation nasal spray,suspension hydrocortisone-pramoxine 2.5 %-1 % 1 applic [place] QID PRN #30 g 10/16/21 12/29/21 U nknown rectal cream (Analpram-HC) amoxicillin 500 mg tablet 2,000 mg PO ONCE #4 tab 01/02/22 Unknown Past Medical History Medical History Diabetes mellitus NIDDM, has been non-compliant with Metformin for past few months History of COVID-19 09/2019 > symptoms at time: upper respiratory symptoms, this was prior to testing availability 09/06/21 ([facility]) > done as preop, was asymptomatic Hypertension Morbid obesity with BMI of 40.0-44.9, adult Rotator cuff tear Left, stable s/p PT Exercise / Class Metabolic Activity II 4-5 Yardwork/Stairs/Walk up hill (one FS (no CP, no SOB)) Past Family History Family History Father Diabetes Other No family history of adverse response to anesthesia Past Surgical History Surgical History History of arthroplasty of right knee Left TKA (10/02/21): SAB at L3/L4 (x1 attempt) + PNB at [facility]. No issues noted per post-op anesthesia progress note. Per discharge summary: "Postoperatively he was initially in our outpatient joint protocol. Unfortunately he was dealing with right knee pain and significant sedation after the procedure. Therapy tried to see him twice but he felt lightheaded when he would stand up We felt it was not safe to send him home and we decided to keep him overnight. On postop day #1 he was feeling much better. His vital signs are stable and his pain was well controlled. He was able to participate well with physical therapy doing ambulation and range of motion exercises. He was then discharged home. " History of arthroscopy right knee History of tooth extraction Past Anesthesia History No Hx of Anesthesia Complications and No Family Hx of Anesthesia Complications History of PONV No Hx of PONV and No Hx of Motion Sickness Social History Smoking Status: Never smoker Do You Dip or Chew Tobacco: No Hx Alcohol Use: No Hx Substance Use: No substance use type: does not use Review of Systems Patient denies chest pain, shortness of breath, dyspnea on exertion, fever, chills, cough, wheezing, palpitations. Physical Exam Vital Signs VITALS BP 146/80 P 74 TEMP 98.4 SP02 96%RA RESP 16 PHYSICAL Full cervical extension range of motion. Full TMJ range of motion. TMD 3 finger breaths Mallampati Score 3 Dentition: missing molars, + caps Lungs: clear throughout to auscultation Cardiac: regular rate and rhythm, no murmurs noted Spine: normal Carotid arteries: negative bruit Extremities: no edema Lab Results Anesthesia Preop Results Results Anesthesia Widget: WBC 8.37 K/uL (4.8-10.8) 01/03/22 Hgb 13.5 g/dL (14.0-18.0) L 01/03/22 Hct 41.5 % (42-52) L 01/03/22 Plt 357 K/uL (130-400) 01/03/22 Na 138 mmol/L (136-145) 01/03/22 K 4.1 mmol/L (3.5-5.1) 01/03/22 Cl 106 mmol/L (98-107) 01/03/22 CO2 24 mmol/L (21-32) 01/03/22 BUN 11 mg/dl (6-23) 01/03/22 Creat 0.99 mg/dl (0.6-1.4) 01/03/22 Glucose Level 131 mg/dl (70-99(Fasting)) H 01/03/22 PT 10.1 Seconds (9.0-12.0) 01/03/22 PTT 28.1 Seconds (21.0-31.0) 01/03/22 INR 0.9 (0.9-1.1) 01/03/22 HA1c 6.8 % (4.5-5.6) H 01/03/22 Blood Type O Positive 01/03/22 Antibody Screen NEGATIVE 01/03/22 Testing Electrocardiogram Date: 05/04/21 Findings:+ NSR @ (69bpm) Normal EKG per cardio. Chest X-Ray Date: 05/04/21 Findings:+ NAD Multiple chronic left-sided rib fractures. Echocardiogram Date: 10/22/18 Essentially normal echocardiogram. No hemodynamically significant valvular abnormalities noted. LV systolic function normal. EF 65 to 69%. Grade 1 diastolic dysfunction. LV cavity size normal. Mild increased left ventricular wall thickness. Normal LV mass. Mild MR.
--- NOTE | 2022-01-25 11:57 | History & Physical Report ---
Date of Service January 25, 2022 Assessment & Plan (1) Osteoarthritis of left knee: We will proceed with a left total knee arthroplasty. Postoperatively he will be started on aspirin for DVT prophylaxis and kept overnight in the hospital for postoperative medical management. [facility] plans [facility]. History of Present Illness Chief Complaint: Osteoarthritis of the left knee. Primary Care Provider: Cheng Rosen MD Sreedhar is a pleasant 56-year-old male who is been dealing with chronic increasing left knee pain. X-rays and clinical examination are diagnostic for advanced arthritis of the left knee. After failing conservative treatment, he has elected proceed with a left total knee arthroplasty. I did do a right knee replacement on him in September 2021 and he did very well with that. Allergies Allergy/AdvReac Type Severity Reaction Status Date / Time azithromycin [From Zithromax] Allergy Intermediate Rash Verified 01/08/22 13:40 Home Medications Medication Instructions Recorded Confirmed Type losartan 100 mg tablet 100 mg PO PM 05/01/21 01/08/22 History metformin 500 mg tablet 500 mg PO BID 05/01/21 01/08/22 History hydrocortisone-pramoxine 2.5 %-1 % 1 applic [place] QID PRN #30 g 10/16/21 01/08/22 Rx rectal cream (Analpram-HC) amoxicillin 500 mg tablet 2,000 mg PO ONCE #4 tab 01/02/22 Rx Past Med/Surg History Medical History Diabetes mellitus NIDDM, has been non-compliant with Metformin for past few months History of COVID-19 09/2019 > symptoms at time: upper respiratory symptoms, this was prior to testing availability 09/06/21 ([facility]) > done as preop, was asymptomatic Hypertension Morbid obesity with BMI of 40.0-44.9, adult Rotator cuff tear Left, stable s/p PT Surgical History History of arthroplasty of right knee Left TKA (10/02/21): SAB at L3/L4 (x1 attempt) + PNB at [facility]. No issues noted per post-op anesthesia progress note. Per discharge summary: "Postoperatively he was initially in our outpatient joint protocol. Unfortunately he was dealing with right knee pain and significant sedation after the procedure. Therapy tried to see him twice but he felt lightheaded when he would stand up We felt it was not safe to send him home and we decided to keep him overnight. On postop day #1 he was feeling much better. His vital signs are stable and his pain was well controlled. He was able to participate well with physical therapy doing ambulation and range of motion exercises. He was then discharged home. 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 Physical Exam On physical examination of the left knee, he has a slight varus deformity. He has good motion of 0 to 120 degrees. No instability. Pain of the distal medial femoral condyle.. Constitutional WD/WN, vitals as above Eyes PERRL, conjunctivae normal, anicteric sclerae ENMT external ear and nose normal, oropharynx normal Neck trachea midline, no thyromegaly Respiratory normal respiratory effort Cardiovascular RRR, no murmur, no edema Gastrointestinal (Abdomen) normal bowel sounds, soft, nontender, no hepatosplenomegaly Psychiatric A+Ox3, euthymic affect Results & Data Results & Data Laboratory Results . Diagnostic Findings X-rays of the left knee show advanced osteoarthritis with joint space narrowing, osteophyte formation, and [id number] articulation. PG Care Time/CCT Total # of Minutes Spent Total Time Spent with Patient: Total time spent is greater than 50% in coordination of care (as documented) at patient's floor/unit and/or counseling patient: Coding Level of Care Code None Diagnoses Osteoarthritis of left knee M17.12
[~2022-01-29 10:21] MED LIST changes: +BUPIVACAINE 0.5 % 5 MG/1 ML PF 10ML VIAL ONE; +Ketorolac (*for OR use only*) 30 MG, dexAMETHasone 4 MG, KETAMINE HCL (**OR use only) 1... INFIL SCH; +ROPIVACAINE 0.5% 5 MG/ML 30 ML VIAL ONE; -ROPIVACAINE 0.5% HCL/PF 150 MG, BUPIVACAINE 0.75% MPF 20 ML, EPINEPHrine 30MG/30ML (OR ... INSTIL SCH; +TRANEXAMIC ACID / 0.7% NACL 1,000 MG/100 ML BAG IV STA; -TRANEXAMIC ACID 1,000 MG **IV Pre-op IV SCH; +ceFAZolin 2000MG 2,000 MG/15 ML SYR IV SCH
[2022-01-29] MEDS ORDERED: MIDAZOLAM HCL 1 MG/ML 2ML VIAL ONE ×3 (11:47→14:22)
[2022-01-29] MEDS ORDERED: HYDROmorphone INJ 1 MG/ML SYRINGE IV PRN (13:37)
[2022-01-29] MEDS ORDERED: ONDANSETRON INJ 2 MG/ML 2 ML VIAL IV PRN ×2 (13:37→17:38)
[2022-01-29] MEDS ORDERED: ePHEDrine sulfate 50 MG/ML AMP IV PRN (13:37)
[2022-01-29] MEDS ORDERED: ATROPINE SULFATE 0.1 MG/ML 10ML SYR IV PRN (13:37)
[2022-01-29] MEDS ORDERED: ORTHO JOINT ANESTHETIC ONE (13:45)
[2022-01-29] MEDS ORDERED: PROPOFOL IV EMULSION 10 MG/ML 20 ML VIAL IV ONE ×4 (13:52→14:59)
[2022-01-29] MEDS ORDERED: ONDANSETRON INJ 2 MG/ML 2 ML VIAL ONE (13:52)
[2022-01-29] MEDS ORDERED: KETAMINE 50 MG/5 ML SYRINGE ONE (14:18)
[2022-01-29] MEDS ORDERED: ePHEDrine sulfate 50 MG/ML AMP ONE (14:29)
[2022-01-29] MEDS ORDERED: fentaNYL citrate 100 MCG/2 ML VIAL ONE (14:38)
--- NOTE | 2022-01-29 15:47 | Operative Report ---
PG Post Operative Report Pre & Post Diagnosis Operation Date: 01/29/22 12:30 Pre-Op Diagnosis: Degenerative Joint Disease Left Knee Post-Op Diagnosis: Degenerative Joint Disease Left Knee I identified the patient and participated in the time-out.: Yes Procedure Operation Date: 01/29/22 12:30 Actual Procedures p Left Total Knee Arthroplasty(Left) - Aiden Noguera DO Surgeon Aiden Noguera DO Purchasing Supervisor Aiden Diehl PAC Estimated Blood Loss 10 Findings Consistent with Post-Op Diagnosis Specimens Left femoral and tibial bone Complications none Disposition Disposition: Recovery Room Indications Sreedhar is a pleasant 56-year-old male who is been dealing with chronic increasing left knee pain. X-rays and clinical examination were diagnostic for advanced arthritis of the left knee. After failing conservative treatment, he elected proceed with a left total knee arthroplasty. Description of Procedure Implants used: I used a Dyllan Persona total knee arthroplasty system with a size 8 standard PS femur, F tibia with a 30 mm stem extension, 34 oval patella, and a size 12 CPS polyethylene bearing. All components were cemented in place with Biomet cement. Sreedhar arrived [facility] for the above procedure. He was seen in the preoperative holding area and the operative extremity was identified and signed. He was given a preoperative antibiotic, TXA, a spinal anesthetic and an adductor nerve block. He was taken back to the operating room and laid on the table in supine position. He was given basic sedation. The operative knee was then prepped and draped in sterile fashion. A timeout was done, and the patient and the operative extremity was properly identified. A midline incision was made directly over the patella. Dissection was taken down to the extensor mechanism. A subvastus arthrotomy was used. The medial retinaculum was released and the fat pad was mostly excised. The knee was flexed and the ACL, PCL, and meniscus were removed. A drill was sent down the center of the femoral canal followed by an intramedullary maren. Off that maren a distal femoral cutting block was placed. 9 mm was resected off the distal femur at 5 of valgus. A posterior referencing AP sizing guide was then placed on the distal femur. The femur measured to be a size 8. 2 drill holes were placed in 3 of external rotation. A 4-in-1 cutting block was then impacted into place. Anterior, posterior, and chamfer cuts were then made. The proximal tibia was then exposed. An external tibial alignment guide was placed. A tibial cut guide was then anchored in place and the proximal tibia was then resected. The posterior aspect of the knee was then opened up and any additional meniscus fragments and osteophytes were removed. The tibia measured to be a size F. The tibial plate was then placed in the appropriate rotation and the tibia was drilled and punched. Trial components were then placed. I used a size 12 CPS polyethylene insert. The knee was brought through a full range of motion and felt to be stable. The peg holes for the femoral component were then drilled. The patella was then everted and 9 mm was resected off the posterior aspect of the patella. The patella measured to be a size 34 oval. 3 peg holes were then drilled. A trial patella was placed. The knee was once again brought through a full range of motion and felt to be stable. Trial components were then removed. The surrounding soft tissues were injected with 100 cc of an orthopedic pain control cocktail. All components were then cemented into place with Biomet cement. The final polyethylene insert was then snapped into place. Once cement was dry the tourniquet was deflated. Hemostasis was obtained. A dilute betadyne lavage was then done for 3 minutes. The joint was then irrigated with normal saline solution. The subvastus arthrotomy was then closed with #1 Vicryl suture. The skin was closed with 2-0 Vicryl, 3-0V lock suture, and edilma. A soft compressive dressing was placed. He was then transferred to a hospital bed and taken to the postanesthesia care unit in stable condition. He tolerated the procedure well. Aiden Diehl PA-C, was present for the entire procedure. He was critical for patient positioning, prepping, draping, retraction exposure, wound closure and application of sterile dressing. I attest to the content of the Intraoperative Record and any orders documented therein. Any exceptions are noted below.
--- NOTE | 2022-01-29 16:35 | XRay Report ---
TWO VIEWS LEFT KNEE CLINICAL HISTORY: Postoperative examination. FINDINGS: AP and crosstable lateral portable views of the left knee are obtained. A left knee arthrop lasty is in near anatomic alignment. There has been undersurface remodeling of the patella. No acute fracture is seen. There are expected postoperative changes around the knee including skin clips, soft tissue edema, and subcutaneous gas. IMPRESSION: Expected postoperative changes status post left knee arthroplasty. No acute fracture is s een. ACT 112: Negative or not required by law. Electronically signed by: Luis Alberto Carson M.D. 01/29/2022 4:33 PM
--- NOTE | 2022-01-29 17:02 | Anesthesiology Progress Note ---
Date of Service January 29, 2022 Anesthesia Post Procedure Vital Signs Vital Signs: Temp Pulse Pulse Resp BP BP Pulse Ox 01/29/22 16:50 36.7 C 84 22 107/66 96 01/29/22 16:40 68 20 113/59 L 95 01/29/22 16:30 69 21 109/56 L 97 01/29/22 16:21 37.4 C 75 16 106/55 L 97 01/29/22 10:42 36.7 C 79 20 170/89 H 97 Transfer of Care Handoff Completed per policy Notes Mental Status: alert / awake / arousable and participated in evaluation Patient Amnestic to Procedure: Yes Nausea / Vomiting: adequately controlled Pain: adequately controlled Airway Patency, RR, SpO2: stable & adequate BP & HR: stable & adequate Hydration State: stable & adequate Neuraxial Anesthesia: was administered and sensory block is resolving Anesthetic Complications: no major complications apparent and Pt Satisfied with anesthetic care
[2022-01-29] MEDS ORDERED: HYDROmorphone INJ 0.5 MG/0.5 ML SYR IV PRN (17:38)
[2022-01-29] MEDS ORDERED: bisacodyL 10 MG SUPP PR PRN (17:38)
[2022-01-29] MEDS ORDERED: MAGNESIUM HYDROXIDE SUSP 30 ML UDC PO PRN (17:38)
[2022-01-29] MEDS ORDERED: NALOXONE HCL 0.4 MG/1 ML VIAL/CARP IV PRN (17:38)
[2022-01-29] MEDS: SODIUM CHLORIDE 0.9% 1000ML 1,000 ML IV SCH (18:10)
[2022-01-29] MEDS: KETOROLAC 30 MG/ML VIAL IV SCH ×2 (18:26→23:25)
[2022-01-29] MEDS: LOSARTAN POTASSIUM 50 MG TAB PO SCH (21:07)
[2022-01-29] MEDS: GABAPENTIN 100 MG CAP PO SCH (21:07)
[2022-01-29] MEDS: ASPIRIN 81 MG ECTAB PO SCH (21:07)
[2022-01-29] MEDS: SENNA 8.6 MG TAB PO SCH (21:08)
[2022-01-29] MEDS: DOCUSATE SODIUM 100 MG CAP PO SCH (21:08)
[2022-01-29] MEDS: ACETAMINOPHEN 500 MG TAB PO SCH (21:08)
[2022-01-29] MEDS: ceFAZolin 2000MG 2,000 MG/15 ML SYR IV SCH (21:09)
[2022-01-29] MEDS: oxyCODONE HCL IR 5 MG TAB (IMMEDIATE RELEASE) PO PRN (23:25)
[2022-01-30] MEDS: SODIUM CHLORIDE 0.9% 1000ML 1,000 ML IV SCH (05:29)
[2022-01-30] MEDS: ACETAMINOPHEN 500 MG TAB PO SCH ×3 (05:33→21:20)
[2022-01-30] MEDS: oxyCODONE HCL IR 5 MG TAB (IMMEDIATE RELEASE) PO PRN ×4 (05:33→22:41)
[2022-01-30] MEDS: ceFAZolin 2000MG 2,000 MG/15 ML SYR IV SCH (05:34)
[2022-01-30] MEDS: KETOROLAC 30 MG/ML VIAL IV SCH ×4 (05:34→22:41)
--- NOTE | 2022-01-30 06:53 | Orthopedic Progress Note ---
Date of Service January 30, 2022 Assessment & Plan (1) Status post left knee replacement: Unfortunate is having a lot of soreness in the left knee. He had a lot of pain after I did his right knee replacement several months ago. I think it is best to keep him in the hospital for the day for pain control. He has gabapentin ordered as well as IV Toradol and Dilaudid if needed. He will be seen by physical therapy today for ambulation and range of motion exercises. At this point, we will plan for discharged home tomorrow. Sesar Eli was seen and examined at bedside this morning. Unfortunate is having a lot of pain in the left knee. He has not been up and ambulating out of bed. He had some trouble sleeping last night. He has no other complaints. Review of Systems All systems reviewed & are unremarkable except as noted in HPI & below. Physical Exam On physical examination of left knee, the dressing is clean and dry. His leg is out in full extension. He has active dorsiflexion plantarflexion of the left ankle. Results & Data Results & Data Laboratory Results . Diagnostic Findings Postoperative x-rays of the left knee show the prosthesis to be in anatomic alignment without any evidence of fracture, desiccation, or loosening PG Care Time/CCT Total # of Minutes Spent Total Time Spent with Patient: Total time spent is greater than 50% in coordination of care (as documented) at patient's floor/unit and/or counseling patient: Coding Level of Care Code 41407 Post Operative Follow-Up Diagnoses Status post left knee replacement Z96.652
[2022-01-30] MEDS: DOCUSATE SODIUM 100 MG CAP PO SCH ×2 (08:35→21:18)
[2022-01-30] MEDS: ASPIRIN 81 MG ECTAB PO SCH ×2 (08:35→21:16)
[2022-01-30] MEDS: GABAPENTIN 100 MG CAP PO SCH ×3 (08:36→21:19)
[2022-01-30] MEDS: MULTIVITAMIN TAB PO SCH (08:36)
[2022-01-30] MEDS: LOSARTAN POTASSIUM 50 MG TAB PO SCH (21:19)
[2022-01-30] MEDS: SENNA 8.6 MG TAB PO SCH (21:20)
[2022-01-30] MEDS: METOCLOPRAMIDE HCL INJ 5 MG/ML 2 ML VIAL IV PRN (21:26)
[2022-01-31] MEDS: ACETAMINOPHEN 500 MG TAB PO SCH ×3 (05:57→20:46)
[2022-01-31] MEDS: KETOROLAC 30 MG/ML VIAL IV SCH ×2 (05:57→11:02)
--- NOTE | 2022-01-31 06:48 | Orthopedic Progress Note ---
Date of Service January 31, 2022 Assessment & Plan (1) Status post left knee replacement: He seems to be doing a little bit better today. He will be seen by physical therapy today for ambulation and range of motion exercises. He is on aspirin for DVT prophylaxis. As long as she is feeling well throughout the day today, he can be discharged home later today. However, if he is having increased pain or feeling dizzy he can stay until tomorrow. Sesar Eli was seen and examined at bedside this morning. Overall he is doing okay. He still in some soreness in his left knee. He was able to ambulate yesterday with physical therapy. He had a little dizziness when he got up. He has no other complaints. Review of Systems All systems reviewed & are unremarkable except as noted in HPI & below. Physical Exam On physical examination of the left knee, the dressing has been changed. Is clean and dry. His leg is out full extension. He is able to do a straight leg raise. Results & Data Results & Data Laboratory Results . Diagnostic Findings . PG Care Time/CCT Total # of Minutes Spent Total Time Spent with Patient: Total time spent is greater than 50% in coordination of care (as documented) at patient's floor/unit and/or counseling patient: Coding Level of Care Code 55610 Post Operative Follow-Up Diagnoses Status post left knee replacement Z96.652
[2022-01-31] MEDS: METOCLOPRAMIDE HCL INJ 5 MG/ML 2 ML VIAL IV PRN (09:21)
[2022-01-31] MEDS: ASPIRIN 81 MG ECTAB PO SCH ×3 (10:03→20:46)
[2022-01-31] MEDS: DOCUSATE SODIUM 100 MG CAP PO SCH ×2 (10:03→20:24)
[2022-01-31] MEDS: MULTIVITAMIN TAB PO SCH (10:03)
[2022-01-31] MEDS: GABAPENTIN 100 MG CAP PO SCH ×3 (10:03→20:45)
[2022-01-31] MEDS: ONDANSETRON 8MG OD TAB PO PRN ×2 (11:53→21:35)
[2022-01-31] MEDS: SENNA 8.6 MG TAB PO SCH (20:24)
[2022-01-31] MEDS: oxyCODONE HCL IR 5 MG TAB (IMMEDIATE RELEASE) PO PRN (20:44)
[2022-01-31] MEDS: LOSARTAN POTASSIUM 50 MG TAB PO SCH (20:45)
[2022-01-31] MEDS ORDERED: LOPERAMIDE HCL 2 MG CAP PO PRN (21:03)
[2022-02-01] MEDS: oxyCODONE HCL IR 5 MG TAB (IMMEDIATE RELEASE) PO PRN ×5 (02:38→21:51)
[2022-02-01] MEDS: ACETAMINOPHEN 500 MG TAB PO SCH ×3 (06:29→20:31)
--- NOTE | 2022-02-01 06:36 | Orthopedic Progress Note ---
Date of Service February 01, 2022 Assessment & Plan (1) Status post left knee replacement: His knee seems to be doing okay. He will be seen by physical therapy again today for ambulation and range of motion exercises. He is on aspirin for DVT prophylaxis. His bowels seem to have calmed down some. If he continues to do well today, he can be discharged home. He will follow-up with orthopedics in 2 weeks. Sesar Eli was seen and examined at bedside this morning. Unfortunately had a tough day yesterday. He was having constipation so he took some laxatives. He was then having diarrhea so I prescribed him Imodium. He is doing a little bit better now. He still in some pain in the left knee. He was able to participate well yesterday with physical therapy. Review of Systems All systems reviewed & are unremarkable except as noted in HPI & below. Physical Exam On physical examination of the left knee, there is a little bit of serous drainage on the dressing but not much. His leg lengths are equal. He is active dorsiflexion and plantarflexion of the left ankle. . Results & Data Results & Data Laboratory Results . Diagnostic Findings . PG Care Time/CCT Total # of Minutes Spent Total Time Spent with Patient: Total time spent is greater than 50% in coordination of care (as documented) at patient's floor/unit and/or counseling patient: Coding Level of Care Code 34505 Post Operative Follow-Up Diagnoses Status post left knee replacement Z96.652
--- NOTE | 2022-02-01 06:38 | Discharge Summary ---
Date of Service February 01, 2022 Admission HPI (Per Admitting) Sreedhar is a pleasant 56-year-old male who is been dealing with chronic increasing left knee pain. X-rays and clinical examination are diagnostic for advanced arthritis of the left knee. After failing conservative treatment, he has elected proceed with a left total knee arthroplasty. I did do a right knee replacement on him in September 2021 and he did very well with that. Admission Exam (Per Admitting) On physical examination of the left knee, he has a slight varus deformity. He has good motion of 0 to 120 degrees. No instability. Pain of the distal medial femoral condyle.. Principal Diagnosis Same as "Discharge Diagnosis" noted below under Discharge Instructions. Discharge Exam On physical examination of the left knee, there is a little bit of serous drainage on the dressing but not much. His leg lengths are equal. He is active dorsiflexion and plantarflexion of the left ankle. . Discharge Data Procedures Performed Operation Date: 01/29/22 12:30 Actual Procedures p Left Total Knee Arthroplasty(Left) - Aiden Noguera DO Ordered Studies 01/29/22 05:00 US - OR guided needle placemen Routine Hospital Course (1) Status post left knee replacement: On January 29, 2022 Sreedhar arrived at [facility] and underwent a left knee replacement without complication. He had a spinal anesthetic. Postoperatively he was started on aspirin for DVT prophylaxis and transferred to the general orthopedic floors. His hospital course was uneventful. On postop day #1, his vital signs were stable and his pain was relatively well controlled. He was able to participate well with physical therapy. He was having a lot of soreness in the knee. On postop day #2 he continued to have some pain in the knee. He was able to ambulate with physical therapy. He was experiencing constipation and then diarrhea. We were able to get his bowels under control. On postop day #3 he was doing better. His bowels had gone down. He was able to participate well with physical therapy. His pain was well controlled. He was then discharged home. He will follow-up with orthopedics in 2 weeks. PG Care Time/CCT Total # of Minutes Spent Total Time Spent with Patient: Total time spent is greater than 50% in coordination of care (as documented) at patient's floor/unit and/or counseling patient: Discharge Plan Discharge Items Patient Disposition: Home - Home Health Services Reason For Visit: POST OP Discharge Diagnosis: Left knee replacement Activity: Per Instructions section Non-emergency contact: Surgeon Call non-emergency contact if: your wound has increased redness and your wound has increased drainage Follow-up/Referrals: Cheng Rosen MD [Primary Care Provider] - (Patient will make follow appt) Diet: Regular Addtl Attending Provider Instructions: Activity and Therapy Recommendations: * If you are using [facility] then therapy will be provided at your home until they feel you have accomplished all of your goals. * If you are using [facility] then Physical Therapy will be provided until they feel you are ready to start Outpatient Physical Therapy. * If you are not using home therapy then Outpatient Physical Therapy should start about 3-5 days from your day of surgery. Therapy will last about 6-10 weeks * It is important not to put a pillow under your knee when you are relaxing or sleeping. It is just as important to make sure you are getting your knee perfectly straight as it is to regain your knee bend. * You were shown a series of exercises in the hospital. Do these exercises three times each day including the exercises you were shown in physical therapy. * Get up and walk several times each day. For the first four weeks, try not to stand or walk for more than one hour at a time. If you do stand or walk for more than one hour, you will not hurt anything, but your leg will likely swell. * As you feel comfortable, you may change from the walker or crutches to a cane and then to independent walking. Medications: * Narcotic You will likely be sent home from the hospital with a prescription for the narcotic pain medication that worked best throughout your stay. * Aspirin Most patients will be required to take Aspirin 81mg twice a day for 6 weeks after surgery. This is obtained [id number] and a prescription is not necessary. * Other medications may be prescribed for specific circumstances. If you have any questions, please call the office at . * Resume previous home medications unless otherwise instructed TEDs/Elastic Stockings: The white elastic stockings help limit swelling and prevent blood clots from forming in your legs.~ The more you wear them, the more they work. Wear them for six weeks. Dressing Care: The dressing can be changed after physical therapy on postop day #1. Daily dry dressing changes for a few days, especially if the incision is still draining some. If the incision is not draining then you may leave the edilma open to air. If there is a little bit of drainage or if the edilma are getting stuck on your clothing then cover the incision with a dry dressing. The edilma will be removed at your 2 week follow-up appointment. Showering: You may shower 5 days from the day of surgery as long as the incision is no longer draining. You may shower with the edilma exposed. Let soapy water run over the edilma and pat them dry. Do not scrub or soak the incision. Things To Watch For: * Drainage from the incision site that occurs more than one week after your surgery. * Increased redness at the incision site. * Fever above 102 degrees Fahrenheit. * Unusual chest pain or shortness of breath. * Call [facility] at with any of the above problems Follow-Up Visit: Follow-up with Dr. Noguera's PA (Aiden Diehl) 2-3 weeks after your day of surgery. He will remove your edilma and answer any questions. If you have any additional questions or concerns, Dr Noguera is usually in the office at the same time and will be available An appointment was probably scheduled when you signed-up for surgery in the office. If you have any questions call Office Instructions: More detailed instructions as well as Frequently Asked Questions were provided in a folder by our office when you signed-up for surgery. Please review these instructions when you get home. If you have any further questions or concerns, please feel free to call the office at [phone] Pending Studies at Discharge: No Stand-Alone Forms: My [facility] Medications and DC Order Prescriptions: New aspirin 81 mg Tablet,Delayed Release (Dr/Ec) 81 mg PO BID 42 Days Qty: 84 RF: 0 oxycodone-acetaminophen 5-325 mg tablet 1 tab PO Q6H PRN (Reason: pain) Qty: 60 RF: 0 celecoxib [Celebrex] 200 mg capsule 200 mg PO BID Qty: 28 RF: 0 gabapentin 100 mg capsule 100 mg PO Q8H Qty: 90 RF: 0 Continued hydrocortisone-pramoxine [Analpram-HC] 2.5-1 % cream 1 applic SD QID PRN (Reason: itching) Qty: 30 RF: 0 metformin 500 mg Tablet 500 mg PO BID RF: 0 losartan 100 mg Tablet 100 mg PO PM RF: 0 amoxicillin 500 mg tablet 2,000 mg PO ONCE PRN (Reason: prior to dental procedures) RF: 0 Discharge Orders: Discharge Order (Routine); Ordered 02/01/22 Ordered By: Aiden Noguera Admission Data Admit Date/Time: 01/29/22 16:13 Attending Provider: Aiden Noguera Admit Provider: Aiden Noguera Primary Care Provider: Cheng Rosen
[2022-02-01] MEDS: ONDANSETRON 8MG OD TAB PO PRN (07:01)
[2022-02-01] MEDS: GABAPENTIN 100 MG CAP PO SCH ×3 (08:26→20:30)
[2022-02-01] MEDS: ASPIRIN 81 MG ECTAB PO SCH ×2 (08:26→20:30)
[2022-02-01] MEDS: DOCUSATE SODIUM 100 MG CAP PO SCH ×2 (08:26→20:34)
[2022-02-01] MEDS: MULTIVITAMIN TAB PO SCH (08:26)
[2022-02-01 14:19] LABS: Basophils # (auto) 0.05 K/uL (0-0.2); Basophils % (auto) 0.5 %; Eosinophils # (auto) 0.47 K/uL (0-0.5); Eosinophils % (auto) 4.6 %; Hematocrit (blood only) 35.9 % (42-52); Hemoglobin 11.3 g/dL (14.0-18.0); Immature Granulocytes # (auto) 0.09 K/uL (0.00-0.02); Immature Granulocytes % (auto) 0.9 %; Lymphocytes # (auto) 2.09 K/uL (1.2-3.4); Lymphocytes % (auto) 20.3 %; Mean Corpuscular Hemoglobin 26.8 pg (25-34); Mean Corpuscular Hgb Conc 31.5 g/dL (32-36); Mean Corpuscular Volume 85.3 fL (80-100); Mean Platelet Volume 9.2 fL (7.4-10.4); Monocytes # (auto) 1.42 K/uL (0.11-0.59); Monocytes % (auto) 13.8 %; Neutrophils % (auto) 59.9 %; Platelet Count 319 K/uL (130-400); RDW Coefficient of Variation 15.4 % (11.5-14.5); RDW Standard Deviation 48.4 fL (36.4-46.3); Red Blood Count 4.21 M/uL (4.7-6.1); White Blood Count 10.32 K/uL (4.8-10.8)
[2022-02-01 14:53] LABS: Albumin Globulin Ratio 1.3 (0.9-2); Albumin Level 3.4 gm/dl (3.4-5.0); BUN Creatinine Ratio 17.2 (10-20); Bilirubin,Total 0.3 mg/dl (0.2-1.0); Creatinine Clr Calc Pharmacy 89.4 ml/min; Est GFR (African American) 80.6 ml/min; Est GFR (Non-African American) 69.5 ml/min; Globulin 2.7 gm/dl (2.5-4.0); Potassium 4.3 mmol/L (3.5-5.1); Total Protein 6.1 gm/dl (6.0-8.3)
[2022-02-01] MEDS ORDERED: COUGH DROP (SUGAR FREE) LOZ 24 LOZ/1 BOX BUCCAL ONE (15:30)
[2022-02-01 15:32] LABS: Appearance Urine Clear (Clear); Bacteria Urine Automated Negative (Negative); Bilirubin Urine Negative (Negative); Blood Urine Negative (Negative); Cast Urine Automated 0 /lpf (0-5); Color Urine Yellow; Epithelial Cell Urine Auto 0-5 /lpf (0-5); Glucose Urine UA Negative (Negative); Ketones Urine Negative (Negative); Leukocyte Esterase Urine Negative (Negative); Nitrite Urine Negative (Negative); Protein Urine Trace (Negative); RBC Urine Automated 0-4 /hpf (0-4); Specific Gravity Urine 1.022 (1.000-1.030); Urobilinogen Urine Negative (Negative); pH Urine 5.5 (4.5-7.5)
[2022-02-01] MEDS: LOSARTAN POTASSIUM 50 MG TAB PO SCH (20:26)
[2022-02-01] MEDS: SENNA 8.6 MG TAB PO SCH (20:35)
[2022-02-02] MEDS: oxyCODONE HCL IR 5 MG TAB (IMMEDIATE RELEASE) PO PRN ×3 (05:44→17:29)
[2022-02-02] MEDS: ACETAMINOPHEN 500 MG TAB PO SCH ×2 (05:44→13:55)
[2022-02-02] MEDS: GABAPENTIN 100 MG CAP PO SCH ×2 (08:20→13:55)
[2022-02-02] MEDS: DOCUSATE SODIUM 100 MG CAP PO SCH (08:20)
[2022-02-02] MEDS: ASPIRIN 81 MG ECTAB PO SCH (08:20)
[2022-02-02] MEDS: MULTIVITAMIN TAB PO SCH (08:21)
--- NOTE | 2022-02-02 13:30 | Orthopedic Progress Note ---
Date of Service February 02, 2022 Assessment & Plan (1) Status post left knee replacement: Overall he is doing much better today. He does not feel as dizzy. He can be seen by physical therapy today for ambulation and range of motion exercises. He is on aspirin for DVT prophylaxis. He can be discharged home later today. He will follow-up with orthopedics in 2 weeks. Sesar Eli was seen and examined at bedside. Overall he is doing much better. His knee is feeling better today. He does not feel dizzy. He feels ready for discharge to home today. Review of Systems All systems reviewed & are unremarkable except as noted in HPI & below. Physical Exam Physical examination of the left knee shows the dressing to be clean and dry. His leg is out full extension. Results & Data Results & Data Laboratory Results . Diagnostic Findings . PG Care Time/CCT Total # of Minutes Spent Total Time Spent with Patient: Total time spent is greater than 50% in coordination of care (as documented) at patient's floor/unit and/or counseling patient: Coding Level of Care Code 97472 Post Operative Follow-Up Diagnoses Status post left knee replacement Z96.652
== END 2022-02-02 19:32 | disposition home health service (06) | DRG 470 ==
LOC: ASU 10:21 → 3E 10:21